=== PATIENT | female | born 1940 | race Asian ===

== ENCOUNTER 2019-01-01 11:09 | Emergency (ER) | payer OTHER, BC ==
[~2019-01-01] VITALS: Ht 157.5 cm; Wt 70.3 kg
[2019-01-01 11:10] VITALS: Ht 157.5 cm; Wt 70.3 kg
[2019-01-01 12:57] VITALS: BP 160/77
== END 2019-01-01 12:57 | disposition home or self-care (01) ==
LOC: ED 11:09
DX: S09.8XXA Other specified injuries of head, initial encounter (principal); I10 Essential (primary) hypertension; E11.9 Type 2 diabetes mellitus without complications; W18.39XA Other fall on same level, initial encounter; Y93.89 Activity, other specified; Y92.89 Other specified places as the place of occurrence of the external cause; Y99.8 Other external cause status

== ENCOUNTER 2019-01-03 09:30 | Emergency (ER) | payer OTHER, BC | END 2019-01-03 11:15 | disposition home or self-care (01) | LOC: ED 09:30 ==